=== PATIENT | male | born 1990 | race Caucasian/White ===

== ENCOUNTER 2019-03-29 16:02 | Emergency (ER) | payer OTHER ==
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
--- NOTE | 2019-03-29 17:12 | CR ---
Lumbar spine: AP, lateral and coned-down lateral view centered to the lumbosacral junction were obtained. Comparison: No previous lumbar spine imaging is available. Vertebral body heights and disc spaces are maintained. Pedicles are intact. Transverse and spinous processes are intact. Visualized sacroiliac joints are normal. No subluxation or fracture is seen. Impression: 1. Nothing acute is appreciated on 3 view lumbar spine exam. Diagnostic code #1 Study was dictated in [place] Standard Time
--- NOTE | 2019-03-29 17:58 | CR ---
Left knee: AP, lateral and sunrise patellar views of the left knee were obtained. Comparison: No prior knee exam. Joint space is not seen well in profile. There may be mild lateral joint space narrowing. Patellofemoral joint is preserved. No joint effusion is seen. No fracture or other bony abnormality is identified. Impression: 1. Joint space is not seen well profile. Possible slight lateral joint space narrowing. 2. Three-view left knee exam is otherwise unremarkable. Diagnostic code #2 This report was dictated in [place] Standard Time
== END 2019-03-29 18:03 | disposition home or self-care (01) ==
LOC: MW.ED 16:02
DX: S80.02XA Contusion of left knee, initial encounter (principal); M54.5 Low back pain; V59.40XA Driver of pick-up truck or van injured in collision with unspecified motor vehicles in traffic accident, initial encounter
CPT/HCPCS: 72100; 72100-26; 73562-26-LT; 73562-LT; 81003; 99283; 99284-25